=== PATIENT | female | born 1995 | race Caucasian/White ===

== ENCOUNTER 2017-02-17 15:16 | Outpatient (CLI) | payer OTHER ==
--- NOTE | 2017-02-17 16:03 | CT ---
CT OF LUMBAR SPINE WITHOUT CONTRAST: COMPARISON: None. HISTORY: Low back pain without known injury. TECHNIQUE: Multiple contiguous axial images are obtained in a CT of the lumbar spine without contrast. Sagitta l and coronal reformats were performed. FINDINGS: The vertebral bodies demonstrate normal height and alignment without fracture or subluxation. The p revertebral and paraspinal soft tissues are unremarkable. There is a small disk-osteophyte complex at L5-S1. This causes moderate central canal stenosis and moderate bilateral neural foraminal stenosis. No other bulges or protrusions are seen throughout th e lumbar spine. No other areas of narrowing of the neural foramina or central canal are seen. IMPRESSION: Disk-osteophyte complex at L5-S1 causes neural foraminal and central canal stenosis. POS: SHIV
== END 2017-02-17 15:17 | disposition home or self-care (01) ==
LOC: TBSIIMAG 15:16
PROVIDERS: ATTEND Neurological Surgery
DX: M54.5 Low back pain (principal); M48.07 Spinal stenosis, lumbosacral region
CPT/HCPCS: 72131

== ENCOUNTER 2017-08-10 19:38 | Emergency (ER) | payer BC ==
[2017-08-10 20:48] LABS: Bilirubin Negative (Negative); Blood, Urine Negative (Negative); Clarity CLEAR (Clear); Glucose, Urine (Dipstick) Negative (Negative); Leukocyte Negative (Negative); Nitrite Negative (Negative); Protein, Urine (Dipstick) Negative (Neg-Trace); Specific Gravity, Urine 1.014 (1.002-1.036)
[2017-08-10 20:49] LABS: Pregnancy Test - Urine (BHCG) Negative (Negative); Pregu Control Background? CLEAR/WHITE (CLR/WHITE); Pregu Control Bar Appear? YES (CONTROL BAR); Specific Gravity 1.014 (1.002-1.036)
== END 2017-08-10 22:09 | disposition left against medical advice (07) ==
LOC: ERS 19:38
DX: Z53.21 Procedure and treatment not carried out due to patient leaving prior to being seen by health care provider (principal)
CPT/HCPCS: 81003; 81025

== ENCOUNTER 2017-08-10 22:30 | Observation (INO) | payer BC ==
[2017-08-10] MEDS ORDERED: Ketorolac Tromethamine 60 MG/2 ML VIAL ONE (23:05)
[2017-08-10 23:25] LABS: #Basophils 0.1 thou/uL (0.0-0.2); #Eosinphils 0.2 thou/uL (0.0-0.7); #Lymphocytes 4.1 thou/uL (1.20-3.40); #Monocytes 0.6 thou/uL (0.11-0.59); #Neutrophils 9.5 thou/uL (1.40-6.50); %Basophils 0.6 % (0.0-1.0); %Eosinophils 1.3 % (0.0-10.0); %Lymphocytes 28.2 % (21.0-51.0); %Monocytes 3.8 % (0.0-10.0); %Neutrophils 66.1 % (42.0-75.0); Hemoglobin 13.2 g/dL (12.0-16.0); Mean Corpuscular HGB CONC 33.8 g/dL (32.0-36.0); Mean Corpuscular Volume 88.8 fl (81.0-99.0); Mean Platelet Volume 7.6 fL (7.4-10.4); Platelet Count 284 thou/uL (130-400); RBC Distribution Width 11.9 % (11.5-14.5); Red Blood Cell (RBC) Count 4.39 mill/uL (4.20-5.40); White Blood Cell (WBC) Count 14.4 thou/uL (4.8-10.8)
[2017-08-10 23:35] LABS: BHCG - Serum Negative (NEGATIVE); Pregs Control Background? CLEAR/WHITE (CLR/WHITE); Pregs Control Bar Appear? YES (CONTROL BAR)
[2017-08-11 03:50] VITALS: BMI 44.6
[2017-08-11] MEDS ORDERED: Ondansetron ODT 4 MG TAB SL PRN (04:01)
[2017-08-11] MEDS ORDERED: HYDROcodone/Acetaminophen 5/325 mg Tablet PO PRN (04:01)
[2017-08-11] MEDS ORDERED: Ondansetron HCl/PF 4 MG/2 ML Vial IVP PRN (04:01)
[2017-08-11] MEDS: HYDROcodone/Acetaminophen 5/325 mg Tablet PO PRN ×2 (04:37→09:49)
[2017-08-11 08:51] VITALS: BP 108/75; TEMP 98
--- NOTE | 2017-08-11 09:53 | MRI ---
PRELIMINARY REPORT/[facility]/EMERGENTY AFTER-HOURS PROCEDURE MR Lumbar Spine Without and With Intravenous Contrast CLINICAL HISTORY: 22 years old, female; Pain; Low back pain; Additional info: Increased back pain and bilateral leg maida n and numbness after injection, no injury, no surgery TECHNIQUE: Magnetic resonance images of the lumbar spine without and with intravenous contrast in multiple plane s. CONTRAST: 20 mL of MULTIHANCE administered intravenously. COMPARISON: No relevant prior studies available. FINDINGS: Vertebrae: Normal lordosis. Vertebral body heights are well-maintained. Normal marrow signal. No abno rmal enhancement Spinal cord: Unremarkable. Normal signal. No abnormal enhancement. Soft tissues: Unremarkable. DISCS/SPINAL CANAL/NEURAL FORAMINA: L1-L2: Unremarkable. No significant disc disease. No stenosis. L2-L3: Unremarkable. No significant disc disease. No stenosis. L3-L4: Small to moderate degenerative circumferential disc bulge without central canal or neural fora moses stenosis. L4-L5: Small to moderate degenerative circumferential disc bulge without central canal or neural fora moses stenosis. Very shallow posterior central disc protrusion. Small annular fissure. L5-S1: Moderate to large posterior central/LEFT paracentral disc protrusion which contacts and deform s the thecal sac. This appears to impinge on the LEFT S1 nerve root and may involve the exiting LEFT L5 nerve root. Moderate LEFT neural foraminal stenosis. IMPRESSION: Moderate to large posterior central/LEFT paracentral disc protrusion at L5/S1 likely involving the LE FT L5 and S1 nerve roots. Thank you for allowing us to participate in the care of your patient. Dictated and Authenticated by: Mateus Driscoll MD 08/11/2017 1:41 AM Central Time ([place] & [place]) FINAL REPORT MRI LUMBAR SPINE WITH AND WITHOUT CONTRAST PERFORMED ON AN EMERGENCY BASIS: Date: 08/11/17 Time: 0020 hours Motion artifact degrades the sequences. There is a disc protrusion centrally and slightly to the left at L5-S1. I am in agreement with the preliminary report issued by Dimitris. POS: PRASANNA
--- NOTE | 2017-08-11 15:44 | HP ---
REASON FOR ADMISSION: Severe low back pain with lumbar disk disease with moderate to large posterior central left paracentral disk protrusion at L5-S1. HISTORY OF PRESENT ILLNESS: The patient gives history of having severe low back pain from yesterday evening. She has had a procedure done for her lumbar spine [facility]. From then on, the patient states her back pain has been slowly getting worse. It is in the lower back area with pain radiating to both lower extremities. The pain last night was 10/10 in intensity. No complaints of fever, cough, or expectoration. No complaints of urinary symptoms including frequency or urgency. She also mentions that she has had this low back pain from 15 years of age. She got evaluated by Dr. Staton here in the room this morning. Her MRI done this morning shows moderate to large posterior central left paracentral disk protrusion at L5-S1 involving left L5-S1 nerve roots, which is new per Dr. Staton whom I spoke to this morning. No history of rectal or urinary incontinence. PAST MEDICAL AND SURGICAL HISTORY: History of Scheuermann's disease, tonsillectomy, lumbar spine procedure done [facility], anxiety , depression. CURRENT MEDICATIONS: Patient takes Flexeril 20 mg twice daily, Naprosyn p.r.n. twice daily, gabapentin 600 mg 3 times daily, sertraline 200 mg daily, buspirone 15 mg daily. ALLERGIES: LATEX. PERSONAL HISTORY: Smokes 4-5 cigarettes a day, does not abuse alcohol or drugs. She is studying to become a signaler. FAMILY HISTORY: Mother has history of tachycardia. Father has had history of bilateral knee replacement, otherwise healthy. REVIEW OF SYSTEMS: The following complete review of systems was negative, unless otherwise mentioned in the HPI or below: Constitutional: Weight loss or gain, ability to conduct usual activities. Skin: Rash, itching. Eyes: Double vision, pain. ENT/Mouth: Nose bleeding, neck stiffness, pain, tenderness. Cardiovascular: Palpitations, dyspnea on exertion, orthopnea. Respiratory: Shortness of breath, wheezing, cough, hemoptysis, fever or night sweats. Gastrointestinal: Poor appetite, abdominal pain, heartburn, nausea, vomiting, constipation, or diarrhea. Genitourinary: Urgency, frequency, dysuria, nocturia. Musculoskeletal: Pain, swelling. Neurologic/Psychiatric: Anxiety, depression. Allergy/Immunologic: Skin rash, bleeding tendency. PHYSICAL EXAMINATION: GENERAL: The patient is a 22-year-old female who is currently not in distress. VITAL SIGNS: Blood pressure 118/90, pulse 86 per minute, respiratory rate 20 per minute, temperature 98.5 degrees Fahrenheit, saturating 98% on room air. NECK: Supple, no elevated JVD. HEENT: Eyes: Extraocular muscles intact. Pupils reacting to light. Oral cavity mucous membranes are moist. No exudates or congestion. CARDIOVASCULAR: S1, S2 heard. Regular rhythm. RESPIRATORY: Air entry 2+ bilateral. No rales or rhonchi. ABDOMEN: Soft, bowel sounds heard. No tenderness, rigidity or guarding. EXTREMITIES: No peripheral edema or calf tenderness. Patient has lower lumbar spine midline and paravertebral area tenderness, no obvious fluctuant mass seen. No point tenderness noted. VASCULAR SYSTEM: Peripheral pulses 2+ bilateral, no ischemic ulcerations or gangrene. CENTRAL NERVOUS SYSTEM: No gross focal deficits seen. Patient is able to move all 4 extremities. PSYCHIATRIC: The patient's mood is euthymic. No hallucinations or delusions. LABORATORY DATA AND X-RAY FINDINGS: MRI of lumbar spine done shows moderate to large posterior central/left paracentral disk protrusion at L5-S1, likely involving the left L5-S1 nerve roots. Had a white count of 14, H&H is 13 and 39 , platelet count 284 with 66% neutrophils, sed rate was 51, MCV is 98. CRP was 3.21. Serum test is negative. UA was negative for any infection. CLINICAL IMPRESSION AND PLAN: The patient is being shortly discharged home. She was evaluated by Dr. Staton here in the room. He will be following up with the patient in 2 weeks. There is no sign of epidural abscess or other sign of any infection, although her white count is 14. Likely this is due to margination. Dr. Staton has faxed her medications to the pharmacy including an antibiotic likely Bactrim. She is currently without pain at present. Please note, this is a same day admit discharge observation summary. The patient has also had outpatient appointment with Dr. Lopes and likely will follow up with him based on the progress she makes. POP
--- NOTE | 2017-08-12 15:57 | CON ---
DATE OF CONSULTATION: 08/11/2017 REASON FOR ADMISSION: Back pain. HISTORY OF PRESENT ILLNESS: The patient is a 22-year-old female with a history of Scheuermann's dise ase in the thoracic spine and lumbar spondylosis, who is status post rhizotomy approximately 3 weeks ago performed by me. The rhizotomy was in the lumbar spine. She has had an exacerbation of back maida n prompting an emergency room visit. She was just seen by my nurse practitioner yesterday for this e xacerbation, but unfortunately was not controlled medications, thus visit here. She has been admitte d for observation and evaluation, concern of infection was raised. An MRI scan of the lumbar spine p erformed with and without contrast indicated acute on chronic worsening of an L5-S1 disk protrusion, slightly worse on the left, but with bilateral S1 nerve involvement. The patient does have back and radicular symptoms posteriorly, which would correspond to an S1 radiculopathy. She denies any fever or chills. In the emergency room, laboratories taken were a CBC indicating a white count was 14.1. She did have a sed rate of 50, CRP of 3. Additionally, urinalysis was obtained, which was unremarkab le. The patient denies any chills. She has been afebrile in the emergency room visit and afebrile d uring her observation here. PAST MEDICAL HISTORY AND SURGICAL HISTORY: Significant for the rhizotomy performed 07/18/2017. She has a history of anxiety and depression and the previously mentioned Scheuermann's disease. CURRENT MEDICATIONS: Flexeril b.i.d. p.r.n., Naprosyn p.r.n., gabapentin, Zoloft, and buspirone. ALLERGIES: LATEX. SOCIAL HISTORY: Smokes 4-5 packs of cigarettes per day. There is no alcohol or drug abuse issues. She is in school, to become a design intern. FAMILY HISTORY: Tachycardia, mother has history of bilateral knee replacements. REVIEW OF SYSTEMS: GENERAL: Negative with exception of that mentioned in the history of present illness, specifically. SKIN: Reveals no rash. EYES: No double vision or significant pain or change in vision. ENT: Unremarkable. CARDIOVASCULAR: Reveals no history of palpitations or chest pain. RESPIRATORY: No shortness of breath, coughing, hemoptysis. UROLOGIC: Symptoms negative. NEUROLOGIC: Symptoms negative with the exception of that mentioned in history of present illness. PHYSICAL EXAMINATION: GENERAL: Patient is lying comfortably in the bed. Her pain level is now down to 2/10 after oral hyd rocodone. HEENT: PERRL/EOMI. NECK: Supple, no rigidity. CHEST: Clear. CARDIOVASCULAR: Regular. ABDOMEN: Soft, nontender, nondistended. No flank or percussion, tenderness. NEUROLOGIC: Cranial nerves are intact. There is no focal motor or sensory deficit in upper or lower extremity. Reflexes 1+. Cline's is negative. No clonus. No pathologic reflexes EXTREMITIES: Reveals a straight leg raise test right side greater than the left side, reproducing ba ck and radicular symptoms on the right side. This does seem to be concordant with the chief complain t. THORACIC SPINE: Reveals a slightly exaggerated kyphosis, but no pain. Cervical spine exam is unrema rkable. Urologic exam is deferred, UA was negative. IMPRESSION: 1. Acute on chronic back pain with an exacerbation and worsening of an L5-S1 disk herniation. This is a likely origin of pain. 2. Elevated white count with elevated sed rate. On review of the MRI that may be some soft tissue e nhancement, although on her examination, there were no outward signs of infection over the previous s ite of the rhizotomy. I have placed her on Bactrim 1 p.o. b.i.d. for 10 days. She will followup in my office in 1 week for further evaluation and treatment of the disk herniation. She may require que gical consultation if she worsens. We will go ahead and discharge her with oral analgesics, Bactrim as mentioned above and a followup in the office in 1 week.
== END 2017-08-11 10:41 | disposition home or self-care (01) ==
LOC: SCSER 22:30 → SURG B 08-11 03:28
PROVIDERS: ADMIT Internal Medicine; ATTEND Internal Medicine
DX: M54.9 Dorsalgia, unspecified (principal); F41.9 Anxiety disorder, unspecified; F32.9 Major depressive disorder, single episode, unspecified; F17.210 Nicotine dependence, cigarettes, uncomplicated; Z79.1 Long term (current) use of non-steroidal anti-inflammatories (NSAID); Z79.899 Other long term (current) drug therapy; Z91.040 Latex allergy status; Z98.890 Other specified postprocedural states
CPT/HCPCS: 72158; 81003; 81025; 84703; 85025; 85652; 86140; 96372; A4216; G0378; J1885

== ENCOUNTER 2018-03-13 08:04 | Outpatient (CLI) | payer BC ==
[2018-03-13] MEDS ORDERED: Gadobenate Dimeglumine 529 MG/1 ML (20ML VIAL) ONE (09:00)
--- NOTE | 2018-03-13 11:31 | MRI ---
PRE AND POSTCONTRAST ENHANCED MRI IMAGES OF THE LUMBAR SPINE: HISTORY: Left-sided numbness, back pain. FINDINGS: Multiplanar, multisequence pre- and postcontrast-enhanced MRI images of the lumbar spine obtained. C omparison is made to a previous exam from 08/11/2017. For the purposes of this dictation, the last [id number] mobile vertebral body will be considered to be t he L5 vertebral body. All other vertebral bodies are numbered according to this. T12-L1, L1-2, L2-3: Unremarkable. L3-4: Disk desiccation is seen. There is a broad-based disk bulge seen, not significantly changed s kyle the previous exam. The neural foramen are patent. L4-5: Again, disk desiccation and a broad-based disk bulge and annular fissure are seen. This is un changed since the previous exam. No significant [id number] of thecal sac or neural foraminal narrowin g is seen. L5-S1: The patient's previously noted central and paracentral disk protrusion has had surgical amanda ion. The disk material appears to have been removed. Postsurgical changes are seen at the L5-S1 lev el. Epidural and paravertebral enhancement seen compatible with scarring. The area of scar envelops the left S1 nerve root as it passes through the lateral recess. No evidence of recurrent disk herni ation is seen. No significant evidence of thecal sac compression seen. IMPRESSION: Postsurgical changes including epidural scar seen at the operative site at the left L5-S1 level. POS: SHIV
== END 2018-03-13 08:05 | disposition home or self-care (01) ==
LOC: SCSMRI 08:04
PROVIDERS: ATTEND Anesthesiology Pain Medicine
DX: M51.17 Intervertebral disc disorders with radiculopathy, lumbosacral region (principal); L90.5 Scar conditions and fibrosis of skin; Z98.890 Other specified postprocedural states
CPT/HCPCS: 72158; A9579

== ENCOUNTER 2018-09-14 14:41 | Emergency (ER) | payer BC ==
[2018-09-14] MEDS ORDERED: HYDROcodone/Acetaminophen 5/325 mg Tablet ONE (15:56)
--- NOTE | 2018-09-14 16:32 | CT ---
CT lumbar spine noncontrast HISTORY: Fall. Low back injury. FINDINGS: Vertebral body heights and alignment are maintained. No acute fracture or dislocation. Dege nerative changes include significant bilateral foraminal stenoses at the lumbosacral junction. Diffuse posterior disc bulge at the L4-5 level. No acute fracture or dislocation. IMPRESSION: Degenerative changes lower dorsal spine. No acute osseous abnormalities are demonstrated.
== END 2018-09-14 16:57 | disposition home or self-care (01) ==
LOC: SCSER 14:41
DX: S39.012A Strain of muscle, fascia and tendon of lower back, initial encounter (principal); F31.9 Bipolar disorder, unspecified; F41.9 Anxiety disorder, unspecified; F17.210 Nicotine dependence, cigarettes, uncomplicated; Z79.899 Other long term (current) drug therapy; W19.XXXA Unspecified fall, initial encounter
CPT/HCPCS: 72131